=== PATIENT | female | born 1990 | race Two or more races ===

== ENCOUNTER 2017-09-03 21:33 | Emergency (ER) | payer MEDICAID ==
[~2017-09-03] VITALS: Ht 172.7 cm; Wt 81.6 kg
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
--- NOTE | 2017-09-03 21:43 | NUR ---
Per EMS, patient has ongoing custody stock, has been with his friends all day. No ETOH/Drug use. Patient was AAOx4 with friends throughout the day and was stressed about his custody stock.
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
--- NOTE | 2017-09-03 21:56 | NUR ---
Patient spoke with ER MD, patient requests to leave AMA.
[2017-09-03] MEDS ORDERED: ONDANSETRON IV *ER 4 MG/2 ML VIAL IV ONE (22:00)
--- NOTE | 2017-09-03 22:05 | NUR ---
Patient does not wish to proceed with medical care recommended by . Patient given information related to possible complications, up to and including , which could occur as a result of leaving the hospital at this time. Patient verbalizes understanding of risks involved due to leaving against medical advice. Patient has signed AMA form.
== END 2017-09-03 22:11 | disposition left against medical advice (07) ==
LOC: ER 21:35
DX: R41.82 Altered mental status, unspecified (principal); Z53.29 Procedure and treatment not carried out because of patient's decision for other reasons
CPT/HCPCS: 84443; 93005; A4663; G0480; G0480-TC

== ENCOUNTER 2018-04-10 01:39 | Emergency (ER) | payer SELFPAY ==
[~2018-04-10] VITALS: Ht 175.3 cm; Wt 68.0 kg
--- NOTE | 2018-04-10 02:00 | NUR ---
PATIENT TO ROOM WITH C/O LEFT FLANK PAIN WITH RADIATION TO BACK X 2 HRS, PATIENT ALSO WITH VOMITING, AAOX3, PATIENT GUARDING, DR AT BEDSIDE, ORDERS NOTED.
[2018-04-10] MEDS ORDERED: KETOROLAC TROMETHAMINE 15 MG INJ IV ONE (02:15)
[2018-04-10] MEDS ORDERED: IV NORMAL SALINE 1000 ML BAG IV ONE (02:15)
[2018-04-10] MEDS ORDERED: HYDROMORPHONE 1 MG/1 ML DISP.SYRIN IV ONE (02:15)
[2018-04-10] MEDS ORDERED: ONDANSETRON 4 MG/2 ML VIAL IV ONE (02:15)
[2018-04-10] MEDS ORDERED: HYDROMORPHONE 2 MG/1 ML DISP.SYRIN ONE (02:30)
[2018-04-10] MEDS ORDERED: KETOROLAC TROMETHAMINE 30 MG INJ ONE (02:30)
[2018-04-10] MEDS ORDERED: ONDANSETRON 4 MG/2 ML VIAL ONE (02:31)
--- NOTE | 2018-04-10 02:38 | NUR ---
20G IV INSERTED, LABS COLLECTED, IVF INFUSING WIDE OPEN, MEDICATED FOR PAIN, TRANSPORTED BY TECH TO CT.
--- NOTE | 2018-04-10 02:45 | NUR ---
Patient back to ER from CT.
--- NOTE | 2018-04-10 03:26 | NUR ---
Patient discharged to home in stable conditon. Written and verbal after care instructions given. Patient verbalizes understanding of instructions. Patient ambulated out of ER with steady gait, no acute signs of distress, VSS, all belongings taken, IV site discontinued, to be driven by girlfriend via private vehicle.
[2018-04-10 03:28] VITALS: BP 110/74
== END 2018-04-10 03:41 | disposition home or self-care (01) ==
LOC: EDSEX 01:41 → ER 01:41
DX: N20.0 Calculus of kidney (principal); J45.909 Unspecified asthma, uncomplicated; F17.200 Nicotine dependence, unspecified, uncomplicated; Z59.0 Homelessness
CPT/HCPCS: 74176; 96361; 96374; 96375; 99284; J1170; J1885; J2405; A4663; J7030

== ENCOUNTER 2020-03-08 23:46 | Emergency (ER) | payer SELFPAY ==
[~2020-03-08] VITALS: Ht 172.7 cm; Wt 80.7 kg
--- NOTE | 2020-03-09 | NUR ---
at bedside for assessment
[2020-03-09] MEDS ORDERED: CEFTRIAXONE /D5W 50ML IVPB **ER PYXIS IV ONE (00:09)
[2020-03-09] MEDS ORDERED: ONDANSETRON 4 MG/2 ML VIAL IV ONE (00:15)
[2020-03-09] MEDS ORDERED: CEFTRIAXONE 2 G in IV DEXTROSE 5% 100 ML IV ONE (00:15)
[2020-03-09] MEDS ORDERED: IV NORMAL SALINE 1000 ML BAG IV ONE (00:15)
[2020-03-09] MEDS ORDERED: ONDANSETRON 4 MG/2 ML VIAL ONE (00:21)
--- NOTE | 2020-03-09 01:04 | NUR ---
vitals: 119/70, 83 HR, 98% on room air, 16 respirations
--- NOTE | 2020-03-09 01:15 | NUR ---
Patient discharged to home in stable condition. Patient noted ambulating with steady gait. states he feel better, no signs of acute distress, took all belongings. Written and verbal after care instructions given. Patient verbalizes understanding of instructions. Stressed follow up or return to ER for worsening s/s.
[2020-03-09 01:16] VITALS: BP 119/70
== END 2020-03-09 01:18 | disposition home or self-care (01) ==
LOC: ER 23:47
DX: J02.9 Acute pharyngitis, unspecified (principal); F17.210 Nicotine dependence, cigarettes, uncomplicated; J45.909 Unspecified asthma, uncomplicated; R11.2 Nausea with vomiting, unspecified
CPT/HCPCS: 96365; 96375; 99284; J0696; J2405; A4663